=== PATIENT | male | born 2000 | race Two or more races ===

== ENCOUNTER 2019-12-29 13:48 | Emergency (ER) | payer OTHER ==
[~2019-12-29] VITALS: Ht 180.3 cm; Wt 80.7 kg
[2019-12-29 15:00] VITALS: BP 145/90
[2019-12-29] MEDS ORDERED: Dicyclomine HCl 10mg/5ml oral soln ORAL ONE (15:00)
--- NOTE | 2019-12-29 15:30 | Emergency Room Report ---
History of Present Illness General Chief Complaint: Nausea, Vomiting, and Diarrhea Source: Patient Present Illness HPI 19-year-old male presents to the emergency department complaining of nausea, vomiting, diarrhea x3 days. Patient states he is not sure whether it is alcohol induced or from eating pork. Patient reports he consumed both on Monday. Patient states that he does not eat pork and it was on accident. He denies blood in the vomitus or stool. He denies black tarry stools. Patient reports he took prune juice in an attempt to "flush out" his system. He denies fevers, chills, recent travel or ill contacts with similar symptoms. Patient denies abdominal pain at this time. Patient reports for the most part his vomiting has resolved however he still has nausea and decreased appetite. he reports not urinating as much. He denies dysuria, hematuria or urgency. Denies dizziness. Allergies: Coded Allergies: No Known Allergies (Unverified , 12/29/19) COVID-19 Screening Contact w/high risk pt: No Experienced COVID-19 symptoms?: No COVID-19 Testing performed ASSISTANCE COORDINATOR: No Patient History Past Medical History: see triage record Past Surgical History: none Pertinent Family History: none Reviewed Nursing Documentation: PMH: Agreed; PSxH: Agreed Nursing Documentation-PMH Past Medical History: No Stated History Review of Systems All Other Systems: negative except mentioned in HPI Physical Exam Vital Signs Date Time Temp Pulse Resp B/P (MAP) Pulse Ox O2 Delivery O2 Flow Rate FiO2 12/29/19 13:52 97.2 84 17 155/101 (119) 98 Room Air Sp02 EP Interpretation: reviewed, normal General Appearance: no apparent distress, alert, GCS 15, non-toxic Head: normocephalic, atraumatic Eyes: bilateral eye normal inspection, bilateral eye PERRL ENT: hearing grossly normal, normal voice Neck: full range of motion Respiratory: lungs clear, normal breath sounds, speaking full sentences Cardiovascular #1: regular rate, rhythm Gastrointestinal: normal bowel sounds, non tender, soft, no peritonitis, non- distended, no guarding Genitourinary: normal inspection, no CVA tenderness Musculoskeletal: normal range of motion, gait/station normal, non-tender Neurologic: alert, motor strength/tone normal, oriented x3, sensory intact, responsive, speech normal Psychiatric: judgement/insight normal Skin: no rash, normal color Medical Decision Making PA Attestation Dr. Arreola is my supervising Physician whom patient management has been discussed with. Diagnostic Impression: Primary Impression: Gastroenteritis Additional Impression: Nausea, vomiting, and diarrhea ER Course 19-year-old male presents to the emergency department complaining of nausea, vomiting, diarrhea x3 days. Patient states he is not sure whether it is alcohol induced or from eating pork. Patient reports he consumed both on Monday. Patient states that he does not eat pork and it was on accident. He denies blood in the vomitus or stool. He denies black tarry stools. Patient reports he took prune juice in an attempt to "flush out" his system. He denies fevers, chills, recent travel or ill contacts with similar symptoms. Patient denies abdominal pain at this time. Patient reports for the most part his vomiting has resolved however he still has nausea and decreased appetite. he reports not urinating as much. He denies dysuria, hematuria or urgency. Denies dizziness. Ddx considered but are not limited to GE, colitis, acute appy, SBO, H.pylori, Gastritis, PNA, pericarditis just to name a few. Vital signs: pt. is afebrile, H&PE are most consistent with Gastritis - no evidence to suggest acute abdomen on physical exam. ORDERS: canceled due to pt. being NAD, non-toxic in appearance, and no evidence to suggest acute abdomen on exam. -None required at this time, the dx is clinical. ED INTERVENTIONS: -1 Liter NS bolus -Zofran 4mg PO - Pepcid 20mg IV - Bentyl 20mg PO After above interventions this patient successfully completed oral fluid challenge without nausea or vomiting. He reports feeling much better. -I do not identify an emergent condition at this time. With current presentation , pt. is stable for close outpatient follow up and conservative treatment. D/ w pt. to return promptly to ED with worsening or new symptoms.- Pt. (and or responsible libertarian) verbalizes' understanding and agreement with proposed treatment plan.proposed treatment plan. DISCHARGE: At this time pt. is stable for d/c to home. Will provide printed patient care instructions, and any necessary prescriptions. Care plan and follow up instructions have been discussed with the patient prior to discharge. Last Vital Signs Date Time Temp Pulse Resp B/P (MAP) Pulse Ox O2 Delivery O2 Flow Rate FiO2 12/29/19 13:52 97.2 84 17 155/101 (119) 98 Room Air Status: improved Disposition: HOME, SELF-CARE Condition: Stable Scripts Dicyclomine Hcl* (DICYCLOMINE HCL*) 10 Mg Capsule 10 MG ORAL QID for Diarrhea/ abd. pain, #12 CAP Prov: Polina Foley 12/29/19 Ondansetron Odt* (ZOFRAN ODT*) 4 Mg Tab.rapdis 4 MG BC EVERY 6 HOURS PRN for Nausea & Vomiting, #10 TAB 0 Refills Prov: Polnia Foley 12/29/19 Referrals: [facility] (PCP) Patient Instructions: Food Choices to Help Relieve Diarrhea, Adult, Nausea and Vomiting, Adult, [id number] Additional Instructions: Take medications as directed. Follow up with a Primary Care Provider in 3-5 days, even if your symptoms have resolved. --Please review list of primary care clinics, if you do not already have a primary care provider Return sooner to ED if new symptoms occur, or current symptoms become worse. - Please note that this Emergency Department Report was dictated using [employer] pile driving technology software, occasionally this can lead to erroneous entry secondary to interpretation by the dictation equipment. Polina Foley Dec 29, 2019 15:30
[2019-12-29] MEDS ORDERED: DICYCLOMINE HCL10 MG ORAL (15:50)
[2019-12-29] MEDS ORDERED: ONDANSETRON ODT4 MG BC (15:50)
[2019-12-29 16:00] VITALS: BP 148/90
== END 2019-12-29 16:00 | disposition home or self-care (01) ==
LOC: EMR 14:39
DX: K52.9 Noninfective gastroenteritis and colitis, unspecified (principal)
CPT/HCPCS: 96361; 96374; 96375; 99284; J2405; J7030; S0028